=== PATIENT | male | born 1975 | race Two or more races ===

== ENCOUNTER 2019-11-07 08:12 | Emergency (ER) | payer OTHER ==
[2019-11-07 08:21] VITALS: BP 128/88; PULSE 66; TEMP 97.6; BMI 32.8
--- NOTE | 2019-11-07 08:23 | PDOC ---
History of Present Illness - General Chief Complaint: Headache Stated Complaint: HEADACHE Time Seen by Provider: 11/07/19 08:22 History Source: Patient Exam Limitations: No Limitations - History of Present Illness Initial Comments: 11/07/19 08:22 HPI 43 YOM with h/o concussion in 2019, presenting with generalized headache, dizziness/lightheadedness, photosensitivity and nausea intermittently x 4 days. pt states he was out on fishing boat with friends this past weekend x 3 days from Monday to Monday; on Monday afternoon about 4 days ago, he got on shore and started having sharp headache, localized to the frontal and temporal regions, nonradiating. He has been having intermittent episodes of sharp headaches x 4 days since, associated with 2 days of dizziness/lightheadedness and nausea and photosensitivity Yesterday, he was driving and was at an intersection and as he was turning his head, he had an episode of sharp headaches. He also had an episode of ringing in his ears 2 nights ago, self resolved. His headache is rated 7/10 when moving around or outdoors, 4/10 when at rest. last taken ibuprofen 800mg about 2 nights ago, no additional analgesia since. pt started having diarrhea x 2 days, watery and brown, nonbloody, but no vomiting. he has been tolerating oral intake without difficulty. went to urgent care yesterday, where he states his balance was off and had dizziness when they were testing him, was referred to the ED for evaluation at that time. of note pt has had concussion in 01/2019 sustained after he fell and hit his head while on vacation. he saw his primary doctor and neurologist - has had imaging performed and told he may have post concussive headache/symptoms as sequelae. Denies fever, chills, neck or back pain, cough or congestion, sore throat, eye pain/redness, blurry vision, hearing disturbances, chest pain, SOB, palpitation, weakness, vomiting, abdominal pain, bladder and bowel problems, focal weakness/paresthesias, leg swelling/pain, rash, speech or gait difficulties.. No sick contacts or travel. No new changes in medications. No suspicious food intake. No new trauma. Allergies: None Past Medical History/PSH: concussion; no surgeries Social history: Lives with family. +current smoker, occasional etoh use socially. Meds: as documented in EMR PMD: Dr Wills. 11/07/19 08:46 11/07/19 08:53 11/07/19 08:56 Past History - Medical History Allergies/Adverse Reactions: Allergies Allergy/AdvReac Type Severity Reaction Status Date / Time No Known Drug Allergies Allergy Verified 11/07/19 08:14 Home Medications: Ambulatory Orders Metoclopramide HCl [Reglan] 10 mg PO TID PRN #12 tablet 11/07/19 COPD: No - Psycho-Social/Smoking History Smoking History: Current some day smoker Have you smoked in the past 12 months: Yes Number of Cigarettes Smoked Daily: 3 Information on smoking cessation initiated: Yes - Substance Abuse Hx (Audit-C & DAST Scrn) How often the patient has a drink containing alcohol: 2-4 times / month Number of drinks the patient has on a typical day: 5 or 6 How often the patient has six or more drinks on one occasion: Weekly Score: In Men: 4 or > Positive; In Women: 3 or > Positive: 7 Screen Result (Pos requires Nsg. Audit-10AR): Positive In the last yr the pt used illegal drug/Rx for NonMed reason: No Score: Yes response is considered Positive: 0 Screen Result (Positive result requires Nsg. DAST-10): Negative Review of Systems - Review of Systems Able to Perform ROS?: Yes Comments:: 11/07/19 08:51 Review of systems Constitutional: no fevers or chills. No weakness, no sweats. HEENT: + headache +dizziness. No congestion. No visual/hearing disturbances, no sore throat, no blindness/curtain or eye pain/redness.. +ringing in ear. +photosensitivity. CVS: no cp or syncope. no palpitations Resp: no sob. No cough. Gastrointestinal: no abdominal pain, vomiting. +nausea, +diarrhea. no bloody stools Genitourinary: no urinary sx, hematuria. MUSCULOSKELETAL: No joint pain and swelling. No neck or back pain. SKIN: no redness or skin changes, no discharge, no rash. No wounds. Hematologic: no easy bruising/bleeding. NEUROLOGIC: No LOC or altered mental status. No weakness, numbness or tingling. +headache, +dizziness. Psych: no anxiety or depression Allergic/Immunologic: no allergies All other systems reviewed and negative, or as documented in HPI. 11/07/19 08:55 *Physical Exam - Vital Signs Last Vital Signs Temp Pulse Resp BP Pulse Ox 97.6 F 66 20 128/88 100 11/07/19 08:14 11/07/19 08:14 11/07/19 08:14 11/07/19 08:14 11/07/19 08:14 - Physical Exam 11/07/19 08:52 Physical exam General: Well appearing, awake and alert, NAD. GCS 15 HEENT: NCAT, PERRL, EOMI, clear conjunctiva, anicteric, moist mucus membranes, oropharynx clear. Airway patent, normal phonation. Uvula midline. no tonsillar hypertrophy. +bilateral frontal sinus tenderness, TM clear, no pinna tenderness to manipulation. Neck: neck supple, FROM, no meningeal signs or meningismus Resp: CTAB, normal and even respirations, no respiratory distress CVS: RRR, no murmurs, 2+ peripheral pulses throughout, no peripheral edema Abdomen: soft, NTND, no rebound or guarding. Back: nontender, normal inspection and ROM MSK: no edema, POND x4, ROM intact. No clubbing or cyanosis. normal bulk and tone. Extremities: no calf tenderness Neuro: Alert, oriented to person time and place. CN II-XII grossly intact. Strength prox and distally 5/5 throughout. Sensation grossly intact to light touch. POND x4. No cerebellar signs, no dysmetria, bilateral finger to nose and heel to weiss equal and symmetric. Speech clear. gait stable, no ataxia, heel to toe in tact. Psych: Calm and cooperative Skin: warm and well perfused, cap refill <2 sec, normal color, no rash or skin discoloration. addendum: 11/07/19 08:55 Medical Decision Making - Medical Decision Making 11/07/19 08:55 Vital Signs Temp Pulse Resp BP Pulse Ox 97.6 F 66 20 128/88 100 11/07/19 08:14 11/07/19 08:14 11/07/19 08:14 11/07/19 08:14 11/07/19 08:14 vitals reviewed, wnl. no fever, no systemic sx. HD appropriate DDX headache: migraine, tension, cluster headache, SAH, CVA, head bleed/ICH. - clinically doubt SAH/bleed, mass or CVA. No evidence to suggest subarachnoid hemorrhage, intracranial bleed, meningitis, encephalitis, temporal arteritis, or intracranial mass. pt has had neurologic workup including imaging through PMD/neurologist as outpatient from 2019 after his concussion sx are more in line with migraine vs tension type vs post concussive headache with noted triggers for his symptoms today. Based on the patient's history and physical there is very low clinical suspicion for significant intracranial pathology. The headache was NOT sudden onset, NOT maximal at onset, there are NO neurologic findings, the patient does NOT have a fever, the patient does NOT have any jaw claudication, the patient does NOT endorse a clotting disorder, patient DENIES any trauma or eye pain pr visual symptoms and the headache is NOT associated with cerebellar findings or gait instability or ataxia. Patient denies new weakness on one side of the body, diplopia, vertigo, slurred speech, headache, or difficulty walking. Kernig and Brudzinski signs are negative, no petechiae, no photophobia, no dysarthria, no facial asymmetry, and no focal deficits. Very low clinical suspicion for meningitis. Will treatment the patient symptomatically with reglan and tylenol, headache i mproved Pt to be discharged in stable condition. Patient made aware of clinical impression, treatment recommendations and disposition plan, return precautions discussed (including but not limited to new or persistent/worsening symptoms, pain, fevers, or signs of infection, chest pain, respiratory distress, inability to tolerate oral intake, dehydration, syncope, or neurologic changes). Follow up with PMD and/or neuro specialist as recommended, follow up information provided, take medications as instructed for duration of time. continue with supportive care, avoid triggers and precipitants. All questions answered to patient's satisfaction and expressed understanding and comfort with this. At the time of discharge, the patient is alert, clinically improved, tolerating po and verbalizes understanding of instructions, satisfied with the care received and felt comfortable with the plan. Patient does not suffer from an acute life- threatening medical condition at this time and is safe for outpatient follow- up. 11/07/19 08:58 Discharge - Discharge Information Problems reviewed: Yes Clinical Impression/Diagnosis: Headache Qualifiers: Headache type: unspecified Headache chronicity pattern: acute headache Intractability: not intractable Qualified Code(s): R51 - Headache Condition: Improved Disposition: HOME - Admission No - Additional Discharge Information Prescriptions: Metoclopramide HCl [Reglan] 10 mg PO TID PRN #12 tablet PRN Reason: nausea/headache - Follow up/Referral Referrals: Miguelito Wills [Non Staff, Medical] - Asa Finch MD [Staff Physician] - Kike Titus MD [Staff Physician] - Oliverio Jones DO [Staff Physician] - Isak Caceres MD [Staff Physician] - - Patient Discharge Instructions Patient Printed Discharge Instructions: Migraine Headaches (Alternative T herapy), DI for Migraine, DI for Headache Additional Instructions: 1) Please follow-up with your primary care doctor in the next 1-2 days. Please call tomorrow for for any urgent issues. please follow up with your neurologist as well for follow up of your headache/post concussive symptoms. 2) You were given a copy of the tests performed today. Please bring the results with you and review them with your primary care doctor 3) If you have any worsening of symptoms or any other concerns please return to the ED immediately. Return if worsening symptoms including fevers, headache, vomiting, visual or hearing disturbances, blurry vision, blindness, abdominal pain, chest pain, shortness of breath, syncope, dehydration, inability to take things by mouth/vomiting, altered mental status, or worsening concerning symptoms. 4) Please continue taking your home medications as directed. your medications on discharge include reglan three times a day as needed for nausea/headache . ibuprofen 600mg four times a day as needed for headache OR Tylenol 650-975 mg every 6 hours as needed for headache as well. do not drink alcohol with your medications. avoid potential triggers. rest, stay in dark and cool room. avoid extensive outdoor activities especially in the heat/summer season. Stay well hydrated and rest adequately. Make an appointment. If you cannot follow-up with your primary care doctor please return to the ED - Post Discharge Activity Work/Back to School Note: Back to Work
[2019-11-07] MEDS ORDERED: ACETAMINOPHEN 500 MG TABLET (FP) PO ONE (08:42)
[2019-11-07] MEDS ORDERED: METOCLOPRAMIDE HCL 10 MG TABLET (FP) PO ONE ×2 (08:42)
[2019-11-07] MEDS ORDERED: ACETAMINOPHEN 500 MG TABLET (FP) ONE (08:43)
== END 2019-11-07 08:49 | disposition home or self-care (01) ==
LOC: FER 08:12
DX: R51 Headache (principal)
CPT/HCPCS: 99283-25

== ENCOUNTER 2022-03-15 18:57 | Inpatient (IN) | payer OTHER ==
[2022-03-15 19:40] VITALS: RESP 18; BMI 36.0
[2022-03-15] MEDS ORDERED: ASPIRIN 81 MG CHEWABLE TABLETS PO ONE (20:03)
[2022-03-15] MEDS ORDERED: ASPIRIN 81 MG CHEWABLE TABLETS ONE (20:11)
[2022-03-15 20:18] LABS: BASO % 0.7 % (0-2.0); EOS % 1.5 % (0-4.5); HEMATOCRIT 44.8 % (35.4-49); HEMOGLOBIN 15.1 GM/dL (11.7-16.9); LYMPH % 39.4 % (8-40); MCHC 33.7 g/dl (32.0-35.9); MEAN CELL VOLUME 85.9 fl (80-96); MEAN PLT VOLUME 9.1 fl (7.5-11.1); MONO % 4.5 % (3.8-10.2); NEUT % 53.9 % (42.8-82.8); PLATELET COUNT 122 10^3/uL (134-434); RBC 5.22 M/mm3 (4.00-5.60); RDW 13.6 % (11.9-15.9)
[2022-03-15 20:27] LABS: INR 1.16 (0.83-1.09); PROTHROMBIN TIME (PATIENT) 13.4 SEC (9.7-13.0)
[2022-03-15 20:41] LABS: ALBUMIN 4.2 g/dl (3.4-5.0); BLOOD UREA NITROGEN 11.2 mg/dL (7-18); CALCIUM 9.2 mg/dL (8.5-10.1)
[2022-03-15 20:44] LABS: CREATININE 0.9 mg/dL (0.55-1.3)
[2022-03-15 20:46] LABS: BILIRUBIN,TOTAL 0.7 mg/dL (0.2-1); TOT PROT 6.8 g/dl (6.4-8.2)
[2022-03-15] MEDS ORDERED: NITROGLYCERIN SUBLINGUAL 1/150 0.4 MG TAB SL PRN (22:10)
[2022-03-15] MEDS ORDERED: ACETAMINOPHEN 325 MG TABLET (FP) PO PRN (22:11)
[2022-03-15] MEDS ORDERED: NITROGLYCERIN SUBLINGUAL 1/200 0.3 MG BTL SL ONE (23:22)
[2022-03-15] MEDS ORDERED: ENOXAPARIN NA (PORCINE) 40 MG/0.4 ML DISP.SYRIN SQ ONE (23:55)
[2022-03-16] MEDS: metoPROLOL SUCCINATE 25 MG TAB.SR.24H (FP) PO SCH ×2 (00:03→09:26)
[2022-03-16] MEDS: ENOXAPARIN NA (PORCINE) 40 MG/0.4 ML DISP.SYRIN SQ SCH ×2 (00:03→09:26)
[2022-03-16] MEDS ORDERED: PANTOPRAZOLE 40 MG TABLET PO ONE (00:07)
[2022-03-16] MEDS: PANTOPRAZOLE 40 MG TABLET PO SCH ×2 (00:14→09:26)
[2022-03-16 08:38] LABS: BASO % 0.6 % (0-2.0); EOS % 1.9 % (0-4.5); HEMATOCRIT 40.9 % (35.4-49); HEMOGLOBIN 14.4 GM/dL (11.7-16.9); LYMPH % 46.2 % (8-40); MCHC 35.2 g/dl (32.0-35.9); MEAN CELL VOLUME 85.4 fl (80-96); MEAN PLT VOLUME 9.4 fl (7.5-11.1); MONO % 5.5 % (3.8-10.2); NEUT % 45.8 % (42.8-82.8); PLATELET COUNT 113 10^3/uL (134-434); RBC 4.79 M/mm3 (4.00-5.60); RDW 13.5 % (11.9-15.9); WHITE BLOOD COUNT 6.4 K/mm3 (4.0-10.0)
[2022-03-16 08:51] LABS: CHOLESTEROL 241 mg/dL (50-200); TRIGLYCERIDES 290 mg/dL (0-150)
[2022-03-16 08:52] LABS: LDL CHOLESTEROL (ONLY SJRH) 172 mg/dL (5-100)
[2022-03-16 08:54] LABS: HDL CHOLESTEROL 38 mg/dL (40-60)
[2022-03-16 09:31] VITALS: BP 116/72; PULSE 65; TEMP 98
[2022-03-16] MEDS ORDERED: FLU VACC QS2022-23(6MOS UP)/PF 60 MCG/0.5 ML SYRINGE IM ONE (10:00)
[2022-03-16] MEDS ORDERED: OMEGA-3 ACID ETHYL ESTERS (FATTY-ACIDS) 1 GM CAPSULE (FP) PO SCH (10:00)
[2022-03-16] MEDS ORDERED: ATORVASTATIN CA 40 MG TABLET (FP) PO ONE (10:01)
[2022-03-17] MEDS ORDERED: ATORVASTATIN CA 40 MG TABLET (FP) PO SCH (22:00)
== END 2022-03-16 14:09 | disposition left against medical advice (07) | DRG 313 ==
LOC: JER 18:57 → JERFT 18:57 → JERBED 21:22 → OBSVTOIN 22:05 → J4W 03-16 01:53
PROVIDERS: ADMIT Internal Medicine; ATTEND Internal Medicine
DX: R07.9 Chest pain, unspecified (principal); I10 Essential (primary) hypertension; I25.10 Atherosclerotic heart disease of native coronary artery without angina pectoris; R06.02 Shortness of breath; F17.210 Nicotine dependence, cigarettes, uncomplicated; E66.9 Obesity, unspecified; Z68.36 Body mass index [BMI] 36.0-36.9, adult
CPT/HCPCS: 0241U-QW; 36415; 71046-TC-FY; 80053; 80061; 84484; 85025; 85610; 93005; 93010; 99285-25; G0378